=== PATIENT | female | born 1955 | race Caucasian/White ===

== ENCOUNTER 2016-10-04 15:49 | Emergency (ER) | payer OTHER ==
[~2016-10-04] VITALS: Ht 154.9 cm; Wt 137.7 kg
[~2016-10-04 15:49] MED LIST: "\\\"BP PILL\\\""; ASPIR-LOW81 MG PO; ASPIR-TRIN325 M1 PO; ASPIRIN81 M1 PO; AUGMENTIN875 MG PO; BACTRIM,SEPT1 TABLET PO; CALAN SR,COVER120 M1 PO; CALAN120 MG PO; CEFDINIR300 MG PO; COLACE100 MG PO; CYMBALTA60 MG PO; Cymbalta PO; DYAZIDE, MA1 CAPSULE PO; Dyazide, Maxzide 37. PO; GABAPENTIN300 MG PO; IMITREX25 MG PO; IRBESARTAN150 MG PO; KEFLEX500 MG PO; LABETALOL HCL200 MG PO; LANTUS (UNITS)1 UNIT IV; LANTUS 10100 UNITS/ SC; LANTUS 10100 UNITS/ SQ; LANTUS 3 M100 UNITS/ SC; LANTUS 3 M100 UNITS1 SC; LANTUS100 UNIT/1 SQ; LASIX40 MG PO; LEVEMIR100 UNIT/2 SC; MULTIPLE VITAM1 EAC1 PO; NEURONTIN300 MG PO; NORCO 10/3251 TABLET PO; NOVOLIN,HU100 UNITS1 IM; NOVOLOG (UNITS1 UNIT IV; NOVOLOG 10100 UNITS/ SC; NOVOLOG PE100 UNITS/ SC; OXYCODONE HCL10 MG PO; PERCOCET 5/31 TABLET PO; PRAVASTATIN SOD40 MG PO; PROTONIX40 MG PO; REQUIP0.5 MG PO; REQUIP2 MG PO; RITALIN LA20 MG PO; ROPINIROLE HCL0.5 MG PO; TIZANIDINE HCL4 MG PO; TOPIRAMATE25 MG PO; TRIAMTERENE-HC1 EACH PO; VERAPAMIL HCL120 MG PO; ZANAFLEX4 MG PO; ZOFRAN4 MG PO
[2016-10-04] MEDS ORDERED: PHENERGAN25 MG PR (18:58)
[2016-10-04] MEDS ORDERED: IMITREX6 MG/0.52 SC (18:58)
[2016-10-04] MEDS ORDERED: ZOFRAN ODT4 MG PO (18:58)
[2016-10-04 19:13] VITALS: BP 167/71
== END 2016-10-04 19:14 | disposition home or self-care (01) ==
LOC: EME 15:49
DX: G43.909 Migraine, unspecified, not intractable, without status migrainosus (principal); G89.29 Other chronic pain; R11.2 Nausea with vomiting, unspecified; E11.9 Type 2 diabetes mellitus without complications; I10 Essential (primary) hypertension; K21.9 Gastro-esophageal reflux disease without esophagitis; Z79.4 Long term (current) use of insulin
CPT/HCPCS: 99281; 99284; J0780; J1100; J3030

== ENCOUNTER 2017-06-11 10:47 | Emergency (ER) | payer OTHER ==
[~2017-06-11] VITALS: Ht 154.9 cm; Wt 136.4 kg
[~2017-06-11 10:47] MED LIST changes: +IMITREX6 MG/0.52 SC; +PHENERGAN25 MG PR; +ZOFRAN ODT4 MG PO
[2017-06-11 11:29] LABS: HEMATOCRIT 40.8 % (36.0-46.0); MCH 29.4 PG (29.0-34.0); MCHC 33.8 G/DL (30.0-36.0); MEAN PLAT.VOLUME 9.7 uM^3 (9.5-12.4); NRBC (%) 0.2 /100 WBC (0-0); PLATELET COUNT 267 K/uL (156-360); RBC DIS.WIDTH-CV 12.9 % (11.8-14.6); RBC DIS.WIDTH-SD 40.3 % (39-53); RED BLOOD COUNT 4.69 M/uL (3.80-5.20); WHITE BLOOD COUNT 8.7 K/uL (4.1-10.2)
[2017-06-11 11:37] LABS: CHLORIDE 104 mEq/L (99-109); POTASSIUM 3.8 mEq/L (3.7-5.4); SODIUM 142 mEq/L (136-147)
[2017-06-11 11:39] LABS: GLUCOSE 128 mg/dL (70-99)
[2017-06-11 11:44] LABS: ANION GAP 12 MEQ/L (2-14); GFR ESTIMATE (CALCULATED) > 59 mL/min/; UREA NITROGEN (BUN) 15 mg/dL (9-23)
[2017-06-11 12:05] LABS: TROP-I INTERPRETATION NEGATIVE; TROPONIN-I < 0.01 ng/mL (0.0-0.30)
[2017-06-11] MEDS ORDERED: RANITIDINE HCL150 MG PO (12:14)
[2017-06-11] MEDS ORDERED: LOPRESSOR50 MG PO (12:14)
[2017-06-11] MEDS ORDERED: PROVENTIL HFA6.7 GM IH (13:40)
[2017-06-11] MEDS ORDERED: PREDNISONE20 MG PO (13:40)
[2017-06-11] MEDS ORDERED: ZITHROMAX Z-PA250 MG PO (13:40)
[2017-06-11 14:15] VITALS: BP 114/59
== END 2017-06-11 14:18 | disposition home or self-care (01) ==
LOC: EME 10:47
DX: J45.901 Unspecified asthma with (acute) exacerbation (principal); I10 Essential (primary) hypertension; E11.9 Type 2 diabetes mellitus without complications; K21.9 Gastro-esophageal reflux disease without esophagitis; F41.9 Anxiety disorder, unspecified; F32.9 Major depressive disorder, single episode, unspecified; Z79.4 Long term (current) use of insulin; Z98.84 Bariatric surgery status
CPT/HCPCS: 71020; 80048; 83880; 84484; 85027; 85379; 93005; 94640; 94640 76; 99281; 99284; J7512

== ENCOUNTER 2017-06-22 10:27 | Emergency (ER) | payer OTHER ==
[~2017-06-22] VITALS: Ht 154.9 cm; Wt 138.3 kg
[~2017-06-22 10:27] MED LIST changes: +LOPRESSOR50 MG PO; +PREDNISONE20 MG PO; +PROVENTIL HFA6.7 GM IH; +RANITIDINE HCL150 MG PO; +ZITHROMAX Z-PA250 MG PO
[2017-06-22 10:59] LABS: MCH 29.4 PG (29.0-34.0); MCHC 33.1 G/DL (30.0-36.0); MCV 88.8 FL (83-99); MEAN PLAT.VOLUME 9.9 uM^3 (9.5-12.4); PLATELET COUNT 261 K/uL (156-360); RBC DIS.WIDTH-CV 12.8 % (11.8-14.6); RBC DIS.WIDTH-SD 41.7 % (39-53); RED BLOOD COUNT 4.39 M/uL (3.80-5.20); WHITE BLOOD COUNT 7.1 K/uL (4.1-10.2)
[2017-06-22 11:12] LABS: CHLORIDE 105 mEq/L (99-109); POTASSIUM 3.8 mEq/L (3.7-5.4); SODIUM 141 mEq/L (136-147)
[2017-06-22 11:13] LABS: GLUCOSE 209 mg/dL (70-99)
[2017-06-22 11:15] LABS: ANION GAP 10 MEQ/L (2-14)
[2017-06-22 11:17] LABS: GFR ESTIMATE (CALCULATED) > 59 mL/min/
[2017-06-22 11:18] LABS: UREA NITROGEN (BUN) 18 mg/dL (9-23)
[2017-06-22 11:56] LABS: TROP-I INTERPRETATION NEGATIVE; TROPONIN-I < 0.01 ng/mL (0.0-0.30)
[2017-06-22 11:57] LABS: D-DIMER ELISA < 150.00 ng/mLDDU (<230)
[2017-06-22 12:08] LABS: INFLUENZA A VIRAL ANTIGEN NEGATIVE; INFLUENZA B VIRAL ANTIGEN NEGATIVE
[2017-06-22 13:12] VITALS: BP 156/57
[2017-06-22 14:09] LABS: TROP-I INTERPRETATION NEGATIVE; TROPONIN-I < 0.01 ng/mL (0.0-0.30)
== END 2017-06-22 15:31 | disposition home or self-care (01) ==
LOC: EME 10:27
PROVIDERS: Emergency Medicine
DX: R07.9 Chest pain, unspecified (principal); J40 Bronchitis, not specified as acute or chronic; R51 Headache; I10 Essential (primary) hypertension; E11.9 Type 2 diabetes mellitus without complications; Z79.4 Long term (current) use of insulin
CPT/HCPCS: 71020; 80048; 84484; 85027; 85379; 87502; 93005; 99281; 99283; J2270; J2765

== ENCOUNTER 2017-10-13 17:20 | Emergency (ER) | payer OTHER ==
[~2017-10-13] VITALS: Ht 154.9 cm; Wt 136.0 kg
[2017-10-13] MEDS ORDERED: PERCOCET 5/31 TABLET PO (19:46)
[2017-10-13 21:19] VITALS: BP 165/81
[2017-10-18] MEDS ORDERED: VENTOLIN HFA18 GM IH (11:00)
[2017-10-18] MEDS ORDERED: SPIRIVA1 INHALATI IH (11:00)
[2017-10-18] MEDS ORDERED: LOPRESSOR100 M1 PO (11:03)
[2017-10-18] MEDS ORDERED: ASPIRIN81 M2 PO (11:04)
[2017-10-18] MEDS ORDERED: OXYCODONE-APAP1 EACH PO (11:05)
[2017-10-18] MEDS ORDERED: NORTRIPTYLINE H10 MG PO (11:07)
[2017-10-18] MEDS ORDERED: GLIPIZIDE5 MG PO (11:09)
[2017-10-18] MEDS ORDERED: SINGULAIR10 MG PO (11:10)
[2017-10-18] MEDS ORDERED: WELLBUTRIN SR150 MG PO (11:10)
[2017-10-18] MEDS ORDERED: PROMETHAZINE HC25 M1 PO (11:11)
== END 2017-10-13 21:23 | disposition home or self-care (01) ==
LOC: EME 17:20
DX: S82.841A Displaced bimalleolar fracture of right lower leg, initial encounter for closed fracture (principal); W18.30XA Fall on same level, unspecified, initial encounter; E11.9 Type 2 diabetes mellitus without complications; I10 Essential (primary) hypertension; Z79.4 Long term (current) use of insulin; F32.9 Major depressive disorder, single episode, unspecified; F41.9 Anxiety disorder, unspecified; K21.9 Gastro-esophageal reflux disease without esophagitis; Z98.84 Bariatric surgery status; Z88.6 Allergy status to analgesic agent
CPT/HCPCS: 73600; 73610; 99281; 99285; J3010

== ENCOUNTER 2017-10-20 09:04 | Day surgery (SDC) | payer OTHER ==
[~2017-10-20] VITALS: Ht 157.5 cm; Wt 137.1 kg
[2017-10-20] VITALS (7 sets, daily range): BP systolic 156–225; BP diastolic 72–97
[~2017-10-20 09:04] MED LIST changes: +ASPIRIN81 M2 PO; +GLIPIZIDE5 MG PO; +LOPRESSOR100 M1 PO; +NORTRIPTYLINE H10 MG PO; +OXYCODONE-APAP1 EACH PO; +PROMETHAZINE HC25 M1 PO; +SINGULAIR10 MG PO; +SPIRIVA1 INHALATI IH; +VENTOLIN HFA18 GM IH; +WELLBUTRIN SR150 MG PO
[2017-10-20 10:38] LABS: CHLORIDE 98 MEQ/L (99-109); CREATININE 0.7 MG/DL (0.6-1.3); GFR ESTIMATE (CALCULATED) > 59 mL/min/; GLUCOSE 291 mg/dL (70-99); POTASSIUM 4.3 MEQ/L (3.7-5.4); SODIUM 135 MEQ/L (136-147); UREA NITROGEN (BUN) 10 mg/dL (9-23)
[2017-10-20] MEDS ORDERED: PERCOCET 5/31 TABLET PO (16:21)
[2017-10-20] MEDS ORDERED: ELIQUIS2.5 MG PO (16:21)
[2017-10-21 03:18] VITALS: BP 160/81
[2017-10-21 07:55] VITALS: BP 160/70
[2017-10-21 11:53] VITALS: BP 140/82
[2017-10-21 15:43] VITALS: BP 15/79
[2017-10-21 23:27] VITALS: BP 140/79
[2017-10-22 08:22] VITALS: BP 168/82
[2017-10-22 08:42] LABS: BASOPHIL (%) 0.2 % (0-1); EOSINOPHIL (%) 0.4 % (0-5); EOSINOPHIL COUNT 0.1 K/uL (0-0.3); HEMATOCRIT 36.6 % (36.0-46.0); HEMOGLOBIN 12.2 G/DL (11.9-15.5); IMMATURE GRANULOCYTE (%) 0.3 % (0.0-0.7); LYMPHOCYTE (%) 13.7 % (15-42); LYMPHOCYTE COUNT 1.6 K/uL (1.0-2.8); MCH 29.7 PG (29.0-34.0); MCHC 33.3 G/DL (30.0-36.0); MCV 89.1 FL (83-99); MONOCYTE (%) 7.5 % (3-12); MONOCYTE COUNT 0.9 K/uL (0-0.8); NEUTROPHIL (%) 77.9 % (45-76); PLATELET COUNT 433 K/uL (156-360); RBC DIS.WIDTH-CV 12.8 % (11.8-14.6); RBC DIS.WIDTH-SD 41.8 % (39-53); RED BLOOD COUNT 4.11 M/uL (3.80-5.20); WHITE BLOOD COUNT 11.6 K/uL (4.1-10.2)
[2017-10-22 09:11] LABS: ALBUMIN 3.3 G/DL (3.2-4.8); ALKALINE PHOSPHATASE 93 IU/L (3-129); ALT (GPT) 10 IU/L (3-49); AST (GOT) 10 IU/L (2-34); CHLORIDE 100 MEQ/L (99-109); CREATININE 0.6 MG/DL (0.6-1.3); GFR ESTIMATE (CALCULATED) > 59 mL/min/; POTASSIUM 3.8 MEQ/L (3.7-5.4); SODIUM 139 MEQ/L (136-147); TOTAL BILIRUBIN 0.5 MG/DL (0.0-1.0); TOTAL PROTEIN 6.2 G/DL (6.4-8.3); UREA NITROGEN (BUN) 9 mg/dL (9-23)
[2017-10-22 09:25] LABS: GLUCOSE 117 mg/dL (70-99)
[2017-10-22 12:02] VITALS: BP 168/92
[2017-10-22 15:41] LABS: APPEARANCE SL.HAZY ((CLEAR)); BILIRUBIN NEGATIVE; BLOOD SMALL; COLOR YELLOW ((YELLOW)); GLUCOSE (STRIP) >=500; KETONES 5; LEUKOCYTES NEGATIVE; NITRITE NEGATIVE; PROTEIN (STRIP) 100; SPECIFIC GRAVITY 1.021 (1.000-1.030); UROBILINOGEN 0.2 MG/DL (0.2-1.0)
[2017-10-22 16:18] LABS: BACTERIA NONE SEEN /HPF; EPITHELIAL CELLS 1+ /HPF; HYALINE CASTS 0-5 /LPF; MUCUS TRACE /LPF; UCUL ADDED? NO; WHITE BLOOD CELLS 0-5 /HPF (0-5)
== END 2017-10-22 15:40 | disposition home or self-care (01) ==
LOC: SDC 09:04 → 2SOUTH 19:11 → ENRESERV 19:20 → 3EAST 21:37
PROVIDERS: Internal Medicine; Podiatrist Foot & Ankle Surgery
DX: S82.841A Displaced bimalleolar fracture of right lower leg, initial encounter for closed fracture (principal); I10 Essential (primary) hypertension; G47.33 Obstructive sleep apnea (adult) (pediatric); E11.40 Type 2 diabetes mellitus with diabetic neuropathy, unspecified; E66.01 Morbid (severe) obesity due to excess calories; Z68.43 Body mass index [BMI] 50.0-59.9, adult; G25.81 Restless legs syndrome; E03.9 Hypothyroidism, unspecified; J45.909 Unspecified asthma, uncomplicated; K21.9 Gastro-esophageal reflux disease without esophagitis; F41.8 Other specified anxiety disorders; Z79.4 Long term (current) use of insulin; Z79.82 Long term (current) use of aspirin; W18.30XA Fall on same level, unspecified, initial encounter
CPT/HCPCS: 71045; 73600; 76000; 80048; 80053; 81003; 82948; 85025; 94640; 94640 76; 94799; G0378; G8978 GP CK; G8979 GP CI; J0690; J1170; J2250; J2405; J2795; J3010; Q0169; S0020